=== PATIENT | female | born 1965 | race Caucasian/White ===

== ENCOUNTER → 2016-12-18 | Outpatient (CLI) | payer OTHER ==
--- NOTE | 2016-12-18 11:13 | MM ---
Reason for exam: additional evaluation requested from prior study. Last mammogram was performed 1 year and 9 months ago. History: Family history of breast cancer in paternal grandmother at age 65. Physical Findings: Nurse did not find any significant physical abnormalities on exam. MG Diagnostic Mammo w CAD GREGORIO Bilateral CC and MLO view(s) were taken. Prior study comparison: March 08, 2015, bilateral MG screening mammo w CAD. September 16, 2013, [facility] DIGITAL RIGHT MAMMOGRAM w/CAD. The breast tissue is heterogeneously dense. This may lower the sensitivity of mammography. Finding: There are typically benign round, grouped/clustered calcifications in the middle position of the left breast. These results were verbally communicated with the patient and result sheet given to the patient on 12/18/16. ASSESSMENT: Benign, BI-RAD 2 RECOMMENDATION: Routine screening mammogram of both breasts in 1 year.
== END | disposition home or self-care (01) ==
LOC: RADMAMWWP 10:16
PROVIDERS: ATTEND Internal Medicine
DX: R92.8 Other abnormal and inconclusive findings on diagnostic imaging of breast (principal)

== ENCOUNTER 2017-03-24 11:18 | Day surgery (SDC) | payer OTHER ==
[2017-03-23 10:47] VITALS: BMI 34.5
[~2017-03-24 11:18] MED LIST: LACTATED RINGERS 1,000 ML IV SCH; LIDOCAINE 1% 20 ML VIAL (10MG/ML) FOR IV START INTRADERMA PRN
[2017-03-24 11:34] VITALS: RESP 18; TEMP 98
[2017-03-24] MEDS ORDERED: LACTATED RINGERS 1,000 ML IV ONE (11:45)
[2017-03-24] MEDS ORDERED: MIDAZOLAM 2 MG/2 ML VIAL IVP ONE (11:53)
[2017-03-24] MEDS ORDERED: PROPOFOL 10 MG/ML 20 ML VIAL IV ONE (12:36)
--- NOTE | 2017-03-24 13:08 | P.PCN ---
Date of Procedure: 03/24/17 Preoperative Diagnosis: Postoperative Diagnosis: Procedure(s) Performed: Procedure: Total colonoscopy. Preoperative diagnosis: Screening for neoplasia. Postoperative diagnosis: Exam within normal limits. Preparation: HalfLytely prep. Sedation: Was provided by anesthesia. Brief clinical history: The patient is a 51-year-old female who is referred for this evaluation for screening for neoplasia. The patient had diarrhea for 4-5 weeks but has been doing well now for several days. No family history of inflammatory bowel disease or neoplasia. This would be her first colonoscopy. Procedure: With the patient on her left lateral decubitus position and after informed consent and adequate sedation, the perianal area was inspected and it did not show any fissures or fistulas. There were no masses felt on digital rectal examination. The Olympus CFQ 160L video colonoscope was then inserted in the rectum in the usual fashion and advanced to the cecum. I intubated the ileocecal valve and examined the terminal ileum as well. Terminal ileum and colon appeared healthy with no edema, erythema, friability, ulceration, exudation or spontaneous bleeding. No polyps or tumors were seen or any obvious diverticular disease or other pathology. I retroflexed the endoscope in the rectum before the endoscope was withdrawn. The patient tolerated the procedure well. Plan: The patient was reassured. She will follow-up with you as planned and I recommended a repeat exam in 10 years. Implants: Indications for Procedure: Operative Findings: Description of Procedure:
[2017-03-24 13:24] VITALS: BP 136/73; PULSE 80
== END 2017-03-24 13:38 | disposition home or self-care (01) ==
LOC: ORWHC2ENDO 11:18
DX: K21.9 Gastro-esophageal reflux disease without esophagitis (principal); Z79.899 Other long term (current) drug therapy
CPT/HCPCS: 81025; 45378; J2250; J2704

== ENCOUNTER 2018-12-11 07:33 | Emergency (ER) | payer OTHER ==
[2018-12-11 07:39] VITALS: RESP 18; TEMP 98.5
[2018-12-11] MEDS ORDERED: SODIUM CHLORIDE 0.9% 1,000 ML IV STA (08:08)
--- NOTE | 2018-12-11 08:10 | ED ---
Abdominal Pain HPI - General Chief Complaint: Abdominal Pain Stated Complaint: abd pain Time Seen by Provider: 12/11/18 08:03 Source: patient, RN notes reviewed Mode of arrival: ambulatory Limitations: no limitations - History of Present Illness Initial Comments: 53-year-old female presents emergency Department with chief complaint of left lower quadrant abdominal pain. Patient states started there is no pain to Thursday. Patient states symptoms have progressed. Patient states that she's had some loose stools but she believes is related to her anxiety. Patient had a prior tubal ligation, bladder suspension. Patient denies any melena, hematochez ia, nausea vomiting. She does admit to night sweats no fever or chills noted. Patient has no urinary symptoms including dysuria, hematuria or urinary frequency. Patient states the pain is worse with movement - Related Data Home Medications Medication Instructions Recorded Confirmed Cholecalciferol (Vitamin D3) 50,000 unit PO Q7D 03/23/17 03/23/17 [Vitamin D3] FLUoxetine HCL [PROzac] 20 mg PO DAILY 03/23/17 03/23/17 Melatonin 5 mg PO HS PRN 03/23/17 03/23/17 Pantoprazole [Protonix] 40 mg PO DAILY 03/23/17 03/23/17 Allergies Allergy/AdvReac Type Severity Reaction Status Date / Time No Known Allergies Allergy Verified 12/11/18 07:39 Review of Systems ROS Statement: Those systems with pertinent positive or pertinent negative responses have been documented in the HPI. ROS Other: All systems not noted in ROS Statement are negative. Past Medical History Past Medical History: GERD/Reflux History of Any Multi-Drug Resistant Organisms: None Reported Past Surgical History: Tubal Ligation Additional Past Surgical History / Comment(s): Jaw surgery Past Anesthesia/Blood Transfusion Reactions: No Reported Reaction Past Psychological History: No Psychological Hx Reported Smoking Status: Former smoker Past Alcohol Use History: Occasional Past Drug Use History: None Reported - Past Family History Mother Family Medical History: No Reported History General Exam Limitations: no limitations General appearance: alert, in no apparent distress Head exam: Present: atraumatic, normocephalic, normal inspection Respiratory exam: Present: normal lung sounds bilaterally. Absent: respiratory distress, wheezes, rales, rhonchi, stridor Cardiovascular Exam: Present: regular rate, normal rhythm, normal heart sounds. Absent: systolic murmur, diastolic murmur, rubs, gallop, clicks GI/Abdominal exam: Present: soft, tenderness (Mild to moderate left lower quadrant tenderness), normal bowel sounds. Absent: distended, guarding, rebound, rigid Back exam: Absent: CVA tenderness (R), CVA tenderness (L) Skin exam: Present: warm, dry, intact, normal color. Absent: rash Course Vital Signs 12/11/18 12/11/18 07:36 10:00 Temperature 98.5 F Pulse Rate 87 79 Respiratory 18 18 Rate Blood Pressure 153/88 138/66 O2 Sat by Pulse 97 99 Oximetry Medical Decision Making - Medical Decision Making 53-year-old female presented emergency department with chief complaint of abdominal pain. Patient labwork, CT which is unremarkable. Patient most likely has abdominal wall strain as it's worse with movement. Patient will be dis charged return parameters were discussed. - Lab Data Result diagrams: 12/11/18 08:14 12/11/18 08:14 Lab Results 12/11/18 12/11/18 12/11/18 Range/Units 08:14 08:14 08:14 WBC 6.5 (3.8-10.6) k/uL RBC 4.31 (3.80-5.40) m/uL Hgb 11.3 L (11.4-16.0) gm/dL Hct 35.1 (34.0-46.0) % MCV 81.3 (80.0-100.0) fL MCH 26.2 (25.0-35.0) pg MCHC 32.2 (31.0-37.0) g/dL RDW 14.6 (11.5-15.5) % Plt Count 337 (150-450) k/uL Neutrophils % 75 % Lymphocytes % 16 % Monocytes % 5 % Eosinophils % 1 % Basophils % 1 % Neutrophils # 4.8 (1.3-7.7) k/uL Lymphocytes # 1.1 (1.0-4.8) k/uL Monocytes # 0.3 (0-1.0) k/uL Eosinophils # 0.1 (0-0.7) k/uL Basophils # 0.1 (0-0.2) k/uL Sodium 140 (137-145) mmol/L Potassium 4.7 (3.5-5.1) mmol/L Chloride 107 (98-107) mmol/L Carbon Dioxide 23 (22-30) mmol/L Anion Gap 10 mmol/L BUN 21 H (7-17) mg/dL Creatinine 0.76 (0.52-1.04) mg/dL Est GFR (CKD-EPI)AfAm >90 (>60 ml/min/1.73 sqM) Est GFR (CKD-EPI)NonAf >90 (>60 ml/min/1.73 sqM) Glucose 148 H (74-99) mg/dL Plasma Lactic Acid Indra 1.8 (0.7-2.0) mmol/L Calcium 9.2 (8.4-10.2) mg/dL Total Bilirubin 0.3 (0.2-1.3) mg/dL AST 23 (14-36) U/L ALT 27 (9-52) U/L Alkaline Phosphatase 73 (38-126) U/L Total Protein 7.2 (6.3-8.2) g/dL Albumin 4.1 (3.5-5.0) g/dL Amylase 44 (30-110) U/L Lipase 177 (23-300) U/L Urine Color Urine Appearance (Clear) Urine pH (5.0-8.0) Ur Specific [place] (1.001-1.035) Urine Protein (Negative) Urine Glucose (UA) (Negative) Urine Ketones (Negative) Urine Blood (Negative) Urine Nitrite (Negative) Urine Bilirubin (Negative) Urine Urobilinogen (<2.0) mg/dL Ur Leukocyte Esterase (Negative) Urine WBC (0-5) /hpf Ur Squamous Epith Cells (0-4) /hpf Urine Bacteria (None) /hpf Urine Mucus (None) /hpf 12/11/18 Range/Units 08:14 WBC (3.8-10.6) k/uL RBC (3.80-5.40) m/uL Hgb (11.4-16.0) gm/dL Hct (34.0-46.0) % MCV (80.0-100.0) fL MCH (25.0-35.0) pg MCHC (31.0-37.0) g/dL RDW (11.5-15.5) % Plt Count (150-450) k/uL Neutrophils % % Lymphocytes % % Monocytes % % Eosinophils % % Basophils % % Neutrophils # (1.3-7.7) k/uL Lymphocytes # (1.0-4.8) k/uL Monocytes # (0-1.0) k/uL Eosinophils # (0-0.7) k/uL Basophils # (0-0.2) k/uL Sodium (137-145) mmol/L Potassium (3.5-5.1) mmol/L Chloride (98-107) mmol/L Carbon Dioxide (22-30) mmol/L Anion Gap mmol/L BUN (7-17) mg/dL Creatinine (0.52-1.04) mg/dL Est GFR (CKD-EPI)AfAm (>60 ml/min/1.73 sqM) Est GFR (CKD-EPI)NonAf (>60 ml/min/1.73 sqM) Glucose (74-99) mg/dL Plasma Lactic Acid Indra (0.7-2.0) mmol/L Calcium (8.4-10.2) mg/dL Total Bilirubin (0.2-1.3) mg/dL AST (14-36) U/L ALT (9-52) U/L Alkaline Phosphatase (38-126) U/L Total Protein (6.3-8.2) g/dL Albumin (3.5-5.0) g/dL Amylase (30-110) U/L Lipase (23-300) U/L Urine Color Yellow Urine Appearance Cloudy H (Clear) Urine pH 5.5 (5.0-8.0) Ur Specific [place] 1.021 (1.001-1.035) Urine Protein Negative (Negative) Urine Glucose (UA) Negative (Negative) Urine Ketones Negative (Negative) Urine Blood Negative (Negative) Urine Nitrite Negative (Negative) Urine Bilirubin Negative (Negative) Urine Urobilinogen <2.0 (<2.0) mg/dL Ur Leukocyte Esterase Trace H (Negative) Urine WBC 2 (0-5) /hpf Ur Squamous Epith Cells 11 H (0-4) /hpf Urine Bacteria Occasional H (None) /hpf Urine Mucus Rare H (None) /hpf Disposition Clinical Impression: Abdominal pain, Abdominal wall strain Disposition: HOME SELF-CARE Condition: Stable Instructions (If sedation given, give patient instructions): Abdominal Pain (ED) Additional Instructions: Please return to the Emergency Department if symptoms worsen or any other concerns. Is patient prescribed a controlled substance at d/c from ED?: No Referrals: Christine Dan MD [Primary Care Provider] - 1-2 days Time of Disposition: 10:42
[2018-12-11 08:28] LABS: Basophils # (A) 0.1 k/uL (0-0.2); Basophils % (A) 1 %; Eosinophils # (A) 0.1 k/uL (0-0.7); Eosinophils % (A) 1 %; HCT 35.1 % (34.0-46.0); HGB 11.3 gm/dL (11.4-16.0); Lymphocytes # (A) 1.1 k/uL (1.0-4.8); Lymphocytes % (A) 16 %; MCH 26.2 pg (25.0-35.0); MCHC 32.2 g/dL (31.0-37.0); MCV 81.3 fL (80.0-100.0); Mean Platelet Volume 6.1; Monocytes # (A) 0.3 k/uL (0-1.0); Monocytes % (A) 5 %; Neutrophils # (A) 4.8 k/uL (1.3-7.7); Neutrophils % (A) 75 %; Platelet Count 337 k/uL (150-450); RBC 4.31 m/uL (3.80-5.40); RDW 14.6 % (11.5-15.5); WBC 6.5 k/uL (3.8-10.6)
[2018-12-11 08:38] LABS: ALT 27 U/L (9-52); AST 23 U/L (14-36); Albumin 4.1 g/dL (3.5-5.0); Alkaline Phosphatase 73 U/L (38-126); Amylase 44 U/L (30-110); Anion Gap 10 mmol/L; Appearance,Urine Cloudy (Clear); Bacteria,Urine Occasional /hpf; Bilirubin,Urine Negative (Negative); Blood Urea Nitrogen 21 mg/dL (7-17); Blood,Urine Negative (Negative); Calcium 9.2 mg/dL (8.4-10.2); Carbon Dioxide 23 mmol/L (22-30); Chloride 107 mmol/L (98-107); Color,Urine Yellow; Glucose 148 mg/dL (74-99); Glucose,Urine (UA) Negative (Negative); Ketones,Urine Negative (Negative); Leukocyte Esterase,Urine Trace (Negative); Lipase 177 U/L (23-300); Mucus,Urine Rare /hpf; Nitrite,Urine Negative (Negative); PH, Urine 5.5 (5.0-8.0); Potassium 4.7 mmol/L (3.5-5.1); Protein,Urine Negative (Negative); Sodium 140 mmol/L (137-145); Specific Gravity,Urine 1.021 (1.001-1.035); Squamous Epithelial Cell,Urine 11 /hpf (0-4); Total Bilirubin 0.3 mg/dL (0.2-1.3); Total Protein 7.2 g/dL (6.3-8.2); Urobilinogen,Urine <2.0 mg/dL (<2.0); WBC,Urine 2 /hpf (0-5)
--- NOTE | 2018-12-11 09:25 | CT ---
EXAM: CT Abdomen and Pelvis With Intravenous Contrast CLINICAL HISTORY: LLQ pain TECHNIQUE: Axial computed tomography images of the abdomen and pelvis with intravenous contrast. CTDI is 19.99 mGy and DLP is 937.3 mGy-cm. This CT exam was performed using one or more of the following dose reduction techniques: automated exposure control, adjustment of the mA and/or kV according to patient size, and/or use of iterative reconstruction technique. Coronal and sagittal reconstructions are performed COMPARISON: No relevant prior studies available. FINDINGS: Lung bases: Unremarkable. No mass. No consolidation. ABDOMEN: Liver: Unremarkable. No mass. Gallbladder and bile ducts: Unremarkable. No calcified stones. No ductal dilation. Pancreas: Unremarkable. No mass. No ductal dilation. Spleen: Unremarkable. No splenomegaly. Adrenals: Unremarkable. No mass. Kidneys and ureters: Unremarkable. No solid mass. No hydronephrosis. Stomach and bowel: Unremarkable. No obstruction. No mucosal thickening. PELVIS: Appendix: No findings to suggest acute appendicitis. Bladder: Unremarkable. No mass. Reproductive: Unremarkable as visualized. ABDOMEN and PELVIS: Intraperitoneal space: Unremarkable. No free air. No significant fluid collection. Bones/joints: No acute fracture. No dislocation. Soft tissues: Unremarkable. Vasculature: Unremarkable. No abdominal aortic aneurysm. Lymph nodes: Unremarkable. No enlarged lymph nodes. IMPRESSION: No acute findings
[2018-12-11 10:11] VITALS: BP 138/66; PULSE 79
== END 2018-12-11 10:52 | disposition home or self-care (01) ==
LOC: EC 07:33
DX: S39.011A Strain of muscle, fascia and tendon of abdomen, initial encounter (principal); R61 Generalized hyperhidrosis; K21.9 Gastro-esophageal reflux disease without esophagitis; F41.9 Anxiety disorder, unspecified; Z87.891 Personal history of nicotine dependence; Z79.899 Other long term (current) drug therapy; Z98.51 Tubal ligation status; Z98.890 Other specified postprocedural states; X58.XXXA Exposure to other specified factors, initial encounter
CPT/HCPCS: 36415; 80053; 82150; 83605; 83690; 85025; 81001; 74177; 99284; 96360; Q9967

== ENCOUNTER → 2020-08-08 | Outpatient (CLI) | payer OTHER | END | disposition home or self-care (01) | LOC: LABWHC1 14:02 | PROVIDERS: ATTEND Nurse Practitioner Adult Health | DX: Z03.818 Encounter for observation for suspected exposure to other biological agents ruled out (principal) | CPT/HCPCS: U0003; C9803 ==

== ENCOUNTER → 2021-02-13 | Outpatient (CLI) | payer OTHER ==
[2021-02-13 10:26] VITALS: BP 134/89; PULSE 81; RESP 18; TEMP 98.7
--- NOTE | 2021-02-13 11:34 | P.HPOB ---
History of Present Illness H&P Date: 02/13/21 Chief Complaint: The patient is here for her routine gynecologic exam and ma mmogram. This is a 55-year-old 002 with an LMP of April 2020. The patient is here to establish with this office. Her menstrual periods have been spacing out over the past couple of years. Her LMP was in April 2020 and before the that she had menstrual periods about every 2-4 months during the prior year. She has been experiencing hot flashes but they seem to be declining recently. She has noticed some breast tenderness recently. Her last pelvic exam and last mammogram were about 3-4 years ago. She is otherwise without complaints. Review of Systems The patient has gained 20 pounds over the last 1.5 years. She denies respiratory, cardiac, or G.I. problems. 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 History of Any Multi-Drug Resistant Organisms: None Reported Past Surgical History: Tubal Ligation Additional Past Surgical History / Comment(s): Jaw surgery. Laparoscopic uterine suspension 1990. Colonoscopy 2017([facility]:next after 10yr). Past Anesthesia/Blood Transfusion Reactions: No Reported Reaction Past Psychological History: Anxiety, Depression Smoking Status: Former smoker Past Alcohol Use History: Occasional (3 per week) Additional Past Alcohol Use History / Comment(s): Smoked cigarettes only as a teenager. Past Drug Use History: None Reported Additional History: She is and has been with her boyfriend since 2019 and lives with him. 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 - Past Family History Mother Family Medical History: No Reported History Additional Family Medical History / Comment(s): in MVA Father Family Medical History: Neurologic Disorder (ALS) Additional Family Medical History / Comment(s): Dies of ALS. Paternal grandmother had breast cancer. Daughter(s) Family Medical History: Neurologic Disorder Additional Family Medical History / Comment(s): of Hallervorden-Spatz disease (PKAN) at age 7. Medications and Allergies Home Medications Medication Instructions Recorded Confirmed Type Cholecalciferol (Vitamin D3) 50,000 unit PO Q7D 03/23/17 02/13/21 History [Vitamin D3] ALPRAZolam [Xanax] 0.25 mg PO DAILY PRN 02/13/21 02/13/21 History Diphenox-Atrop 2.5-0.025 mg 1 tab PO 5XD PRN 02/13/21 02/13/21 History [Lomotil] Famotidine 40 mg PO DAILY 02/13/21 02/13/21 History Omeprazole 40 mg PO QAM 02/13/21 02/13/21 History Ondansetron [Zofran] 4 mg PO Q12HR PRN 02/13/21 02/13/21 History Venlafaxine HCl [Effexor] 37.5 mg PO QAM 02/13/21 02/13/21 History Venlafaxine HCl [Effexor] 75 mg PO QAM 02/13/21 02/13/21 History Allergies Allergy/AdvReac Type Severity Reaction Status Date / Time No Known Allergies Allergy Verified 02/13/21 10:12 Exam Vital Signs Temp Pulse Resp BP Pulse Ox 02/13/21 10:15 98.7 F 81 18 134/89 97 Intake and Output 02/12/21 02/13/21 02/13/21 22:59 06:59 14:59 Other: Weight 91.626 kg Height 5 feet 2 inches, weight 202 pounds, BMI 36.9. This is a well-developed well-nourished white female who is alert and oriented times 3 in no acute distress. HEENT: Within normal limits. NECK: Supple without mass or thyromegaly. CHEST AND LUNGS: Clear to auscultation. HEART: Regular rate and rhythm. BREASTS: Are without mass or discharge. Both breasts are mildly tender throughout. AXILLARY EXAM: Negative for adenopathy. BACK: Negative for CVA tenderness. ABDOMEN: Soft, nontender, without palpable masses. PELVIC EXAM: Normal external genitalia. Cervix and vagina appear normal with minimal atrophy. The cervix is slightly stenotic. There is no unusual discharge. There is no evidence of prolapse. The uterus is midposition, nong ravid size and nontender. There are no palpable adnexal masses or tenderness. RECTAL EXAM: Rectovaginal exam is negative for mass or tenderness and is negative for occult blood. EXTREMITIES: Nontender. IMPRESSION: 1. 55-year-old perimenopausal female with oligomenorrhea and mild vasomotor symptoms with normal gynecologic exam. 2. Mild breast tenderness possibly secondary to perimenopausal hormonal changes. 3. Recent weight gain over the last 1-1/2 years possibly related to perimenopausal changes. PLAN: 1. Pap smear cotest was performed. 2. Self breast awareness was discussed with the patient. 3. Greening mammogram will be done today. 4. Osteoporosis prevention was discussed. I have stressed the importance of adequate calcium, vitamin D and regular exercise. Recommended amounts of calcium and vitamin D were also discussed. 5. Patient will keep a menstrual calendar and call if menstrual problems or if vaginal bleeding after 12 months of amenorrhea. 6. We have discussed weight control. I have stressed the importance of good nutrition and regular exercise. We have discussed the importance of regular meals and adequate fiber. I have also recommended that she avoid taking medications or supplements to try to lose weight. 7. She was advised to return in one year for her annual well woman exam and as needed.
--- NOTE | 2021-02-14 10:02 | MM ---
Reason for exam: screening (asymptomatic). Last mammogram was performed 4 years and 2 months ago. History: Family history of breast cancer in paternal grandmother at age 65. Physical Findings: A clinical breast exam by your physician is recommended on an annual basis and results should be correlated with mammographic findings. MG 3D Screening Mammo W/Cad Bilateral CC and MLO view(s) were taken. Prior study comparison: December 18, 2016, bilateral MG diagnostic mammo w CAD GREG[facility]IO. March 14, 2015, right breast MG work up mamm w CAD RT. The breast tissue is heterogeneously dense. This may lower the sensitivity of mammography. There is no discrete abnormality. No significant changes when compared with prior studies. ASSESSMENT: Negative, BI-RAD 1 RECOMMENDATION: Routine screening mammogram of both breasts in 1 year.
== END ==
LOC: WWCWWP 10:05
PROVIDERS: ATTEND Obstetrics & Gynecology
DX: Z01.419 Encounter for gynecological examination (general) (routine) without abnormal findings (principal); N91.5 Oligomenorrhea, unspecified; N64.4 Mastodynia; R63.5 Abnormal weight gain; N95.1 Menopausal and female climacteric states; K21.9 Gastro-esophageal reflux disease without esophagitis; F41.9 Anxiety disorder, unspecified; F32.9 Major depressive disorder, single episode, unspecified; Z87.891 Personal history of nicotine dependence; Z80.3 Family history of malignant neoplasm of breast; Z12.31 Encounter for screening mammogram for malignant neoplasm of breast
CPT/HCPCS: 77063; 77067

== ENCOUNTER → 2023-10-30 | Outpatient (CLI) | payer OTHER ==
--- NOTE | 2023-10-30 15:28 | US ---
EXAMINATION TYPE: US abdomen limited DATE OF EXAM: 10/30/2023 COMPARISON: NONE CLINICAL INDICATION: Female, 58 years old with history of D17.9 BENIGN LIPOMATOUS NEOPLASM, K59.00, R 11.0; Right subcostal palpable area x a few weeks TECHNIQUE: several images taken at palpable area FINDINGS: Perch Mender notes: avascular isoechoic area measuring 3.8x1.1x4.1cm at palpable milady. Lipo ma vs. fat lobule IMPRESSION: Targeted scanning along the right subcostal palpable site shows a suspected 3.8 cm subcutaneous lipom a. If symptomatic or if growth is encountered, consider surgical evaluation.
== END | disposition home or self-care (01) ==
LOC: RADUSWWP 12:54
PROVIDERS: ATTEND Family Medicine
DX: D17.9 Benign lipomatous neoplasm, unspecified (principal); K59.00 Constipation, unspecified; R11.0 Nausea
CPT/HCPCS: 76705

== ENCOUNTER → 2023-11-03 | Outpatient (CLI) | payer OTHER ==
[2023-11-03 16:01] VITALS: BP 149/99; PULSE 90; RESP 17; TEMP 98.3
--- NOTE | 2023-11-03 16:09 | P.HPOB ---
History of Present Illness H&P Date: 11/03/23 Chief Complaint: The patient is here for her routine gynecologic exam and ma mmogram. This is a 58-year-old -0-0-2 with an LMP of 2019. The patient is without gynecologic complaints and denies any postmenopausal bleeding. Review of Systems The patient's weight has been stable over the last year. She denies respiratory, cardiac, or G.I. problems. 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 History of Any Multi-Drug Resistant Organisms: None Reported Past Surgical History: Tubal Ligation Additional Past Surgical History / Comment(s): Jaw surgery. Laparoscopic uterine suspension 1990. Colonoscopy 2017(Nasr:next after 10yr). Past Anesthesia/Blood Transfusion Reactions: No Reported Reaction Past Psychological History: Anxiety, Depression Smoking Status: Former smoker Past Alcohol Use History: Occasional (About 3 drinks per month.) Additional Past Alcohol Use History / Comment(s): Smoked cigarettes only as a teenager. Past Drug Use History: None Reported Additional History: The patient is and has been with her boyfriend since 2019 and they live together. 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 - Past Family History Mother Family Medical History: No Reported History Additional Family Medical History / Comment(s): in MVA Father Family Medical History: Neurologic Disorder Additional Family Medical History / Comment(s): Dies of ALS. Paternal grandmother had breast cancer. Daughter(s) Family Medical History: Neurologic Disorder Additional Family Medical History / Comment(s): of Hallervorden-Spatz disease (PKAN) at age 7. Medications and Allergies Home Medications Medication Instructions Recorded Confirmed Type Cholecalciferol (Vitamin D3) 50,000 unit PO Q7D 03/23/17 02/13/21 History [Vitamin D3] ALPRAZolam [Xanax] 0.25 mg PO DAILY PRN 02/13/21 02/13/21 History Omeprazole 40 mg PO QAM 02/13/21 02/13/21 History Ondansetron [Zofran] 4 mg PO Q12HR PRN 02/13/21 02/13/21 History Venlafaxine HCl [Effexor] 37.5 mg PO QAM 02/13/21 02/13/21 History Allergies Allergy/AdvReac Type Severity Reaction Status Date / Time No Known Allergies Allergy Verified 11/03/23 15:37 Exam Vital Signs Temp Pulse Resp BP Pulse Ox 11/03/23 15:39 98.3 F 90 17 149/99 99 Intake and Output 11/03/23 11/03/23 11/03/23 06:59 14:59 22:59 Other: Weight 92.533 kg Height 5 feet 3 inches, weight 204 pounds, BMI 36.1. This is a well-developed well-nourished white female who is alert and oriented times 3 in no acute distress. HEENT: Within normal limits. NECK: Supple without mass or thyromegaly. CHEST AND LUNGS: Clear to auscultation. There is a 3.5 x 3.5 cm lipoma beneath the right breast. This is nontender without erythema and is soft. She states this was evaluated by ultrasound and she states the findings were benign and consistent with a lipoma. HEART: Regular rate and rhythm. BREASTS: Are without mass or discharge. AXILLARY EXAM: Negative for adenopathy. BACK: Negative for CVA tenderness. ABDOMEN: Soft, nontender, without palpable masses. PELVIC EXAM: External genitalia reveals 2 benign-appearing right labial inclusion cysts each measuring approximately 5 mm. These were not noticed by the patient and are nontender. Cervix and vagina appear normal with minimal atrophy. There is no unusual discharge. There is no evidence of prolapse. The uterus is slightly retroverted, nongravid size and nontender. There are no palpable adnexal masses or tenderness. RECTAL EXAM: Rectovaginal exam is negative for mass or tenderness and is negative for occult blood. EXTREMITIES: Nontender. IMPRESSION: 1. 58-year-old menopausal female with normal gynecologic exam. 2. Elevated blood pressure PLAN: 1. Pap smear was deferred since she had a negative Pap smear, test on 02/13/2021. 2. Self breast awareness was discussed with the patient. We have also discussed symptoms associated with inflammatory breast cancer. 3. Screening mammogram will be done today. 4. Osteoporosis prevention was discussed. I have stressed the importance of adequate calcium, vitamin D and regular exercise. Recommended amounts of calcium and vitamin D were also discussed. We will plan on doing a bone density test at age 61. 5. We have discussed her elevated blood pressure. She believes she has a blood pressure cuff at home. She also can check her own blood pressure at work. I have recommended that she check her blood pressure on a regular basis and follow-up with her PCP for blood pressure elevations. 6. She was advised to return in one year for her annual well woman exam.
--- NOTE | 2023-11-04 20:01 | MM ---
Reason for Exam: Screening (asymptomatic). Last mammogram was performed 2 year(s) and 8 month(s) ago. Patient History: Menarche at age 15. First Full-Term at age 21. Postmenopausal. Patient has history of breast feeding. Paternal grandmother had breast cancer, age 65. Risk Values: Siomara 5 year model risk: 1.0%. NCI Lifetime model risk: 6.5%. Prior Study Comparison: 03/14/2015 Right Diagnostic Mammogram, [facility]. 12/18/2016 Bilateral Diagnostic Mammogram, [facility]. 02/13/2021 Bilateral Screening Mammogram, [facility]. Tissue Density: There are scattered fibroglandular densities. Findings: Analyzed By CAD. Chronic nodularity on the right. Unchanged bilateral asymmetric densities. There is no suspicious group of microcalcifications or new suspicious mass in either breast. Overall Assessment: Benign, BI-RAD 2 Management: Screening Mammogram of both breasts in 1 year. . Patient should continue monthly self-breast exams. A clinical breast exam by your physician is recommended on an annual basis. This exam should not preclude additional follow-up of suspicious palpable abnormalities. Note on Siomara scores and lifetime risk: 1. A Siomara score greater than 3% is considered moderate risk. If this is the case, consider specialist referral to assess eligibility for a risk reducing agent. 2. If overall lifetime risk for the development of breast cancer is 20% or higher, the patient may qualify for future screening with alternating mammogram and breast MRI. Electronically signed and approved by: Jose Ibanez M.D. Radiologist
== END ==
LOC: WWCWWP 15:22
PROVIDERS: ATTEND Obstetrics & Gynecology
DX: Z12.31 Encounter for screening mammogram for malignant neoplasm of breast (principal); R03.0 Elevated blood-pressure reading, without diagnosis of hypertension; K21.9 Gastro-esophageal reflux disease without esophagitis; F41.9 Anxiety disorder, unspecified; F32.A Depression, unspecified; Z80.3 Family history of malignant neoplasm of breast; Z78.0 Asymptomatic menopausal state; Z87.891 Personal history of nicotine dependence; Z79.899 Other long term (current) drug therapy
CPT/HCPCS: 77063; 77067

== ENCOUNTER 2023-12-01 07:36 | Emergency (ER) | payer OTHER ==
[2023-12-01 07:42] LABS: Glucose,Whole Blood 123 mg/dL (70-110)
[2023-12-01 08:04] VITALS: BP 149/84; PULSE 76; RESP 18; TEMP 98.2
== END 2023-12-01 08:06 | disposition left against medical advice (07) ==
LOC: EC 07:36
DX: Z53.21 Procedure and treatment not carried out due to patient leaving prior to being seen by health care provider (principal)
CPT/HCPCS: 36415; 99499